=== PATIENT | male | born 1995 | race African-American/Black ===

== ENCOUNTER 2024-02-16 13:58 | Emergency (ER) | payer OTHER ==
[~2024-02-16] VITALS: Ht 172.7 cm; Wt 111.1 kg
[2024-02-16] MEDS ORDERED: KETOROLAC TROMETHAMINE 15 MG/ML VIAL ONE (14:34)
[2024-02-16] MEDS ORDERED: MORPHINE SULFATE INJ 4 MG/ML DISP.SYRIN ONE (14:34)
[2024-02-16] MEDS: MORPHINE SULFATE INJ 2 MG/ML DISP.SYRIN IV ONE (14:34)
[2024-02-16] MEDS: KETOROLAC TROMETHAMINE 15 MG/ML VIAL IV ONE (14:35)
[2024-02-16] MEDS: ONDANSETRON HCL/PF - ER 4 MG/2 ML VIAL IV ONE (16:00)
[2024-02-16] MEDS ORDERED: KETO10TA2 PO (16:43)
[2024-02-16] MEDS ORDERED: HYDR-4209 PO (16:43)
[2024-02-16 16:53] VITALS: BP 124/78; TEMP 98.7; O2SAT 99
== END 2024-02-16 16:53 | disposition home or self-care (01) ==
LOC: ER 14:00
DX: S52.612A Displaced fracture of left ulna styloid process, initial encounter for closed fracture (principal); M54.2 Cervicalgia; M25.562 Pain in left knee; Z98.890 Other specified postprocedural states; Z79.899 Other long term (current) drug therapy; V89.2XXA Person injured in unspecified motor-vehicle accident, traffic, initial encounter; Y93.89 Activity, other specified; Y92.89 Other specified places as the place of occurrence of the external cause; Y99.8 Other external cause status
CPT/HCPCS: 70450-TC; 72125-TC; 73110; 73564-TC; J1885; J2270; J2405